=== PATIENT | female | born 2000 | race Hispanic/Latino ===

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

== ENCOUNTER 2024-03-29 07:44 | Inpatient (IN) | payer MEDICAID ==
[2024-03-29 08:08] VITALS: BMI 27.1
[2024-03-29] MEDS ORDERED: hydrALAZINE 20 MG/ML VIAL SLOW IVP PRN ×2 (09:17→09:38)
[2024-03-29] MEDS ORDERED: Lidocaine 1% (PF) 30 ML VIAL SC PRN (09:38)
[2024-03-29] MEDS ORDERED: Ondansetron PF 4 MG/2 ML Vial IVP PRN ×4 (09:38→19:37)
[2024-03-29] MEDS ORDERED: Promethazine HCl 25 MG/ML VIAL IM PRN ×3 (09:38→19:37)
[2024-03-29] MEDS ORDERED: Penicillin G Potassium 5 MILL.UNITS in Sodium Chloride 0.9% 100 ML IVPB SCH (09:45)
[2024-03-29] MEDS ORDERED: Acetaminophen 500 MG TAB PO PRN (09:45)
[2024-03-29] MEDS ORDERED: Zolpidem Tartrate 5 MG TAB PO PRN (09:45)
[2024-03-29] MEDS ORDERED: Carboprost 250 MCG/ML AMP IM PRN (09:45)
[2024-03-29] MEDS ORDERED: Oxytocin 30 units/NS 500 ML 500 ML IV SCH (09:45)
[2024-03-29] MEDS ORDERED: Diphenoxylate HCl/Atropine Tablet PO PRN (09:45)
[2024-03-29] MEDS ORDERED: fentaNYL 50 mcg/mL 1 mL Vial SLOW IVP PRN (09:45)
[2024-03-29] MEDS ORDERED: Tranexamic Acid 1,000 MG/10 ML VIAL IVP PRN (09:45)
[2024-03-29] MEDS ORDERED: Methylergonovine 0.2 MG/ML VIAL IM PRN (09:45)
[2024-03-29] MEDS ORDERED: Misoprostol 200 MCG TAB PR PRN (09:45)
[2024-03-29 11:02] LABS: Hematocrit 43.1 % (34.9-44.5); Mean Corpuscular HGB CONC 34.8 g/dL (32.0-36.0); Mean Corpuscular Hemoglobin 31.8 pg (27.0-33.0); Mean Corpuscular Volume 91.5 fL (81.6-98.3); Mean Platelet Volume 10.4 fL (7.4-10.4); Platelet Count 286 10x3/uL (150-450); RBC Distribution Width 12.9 % (11.5-14.5); Red Blood Cell (RBC) Count 4.71 10x6/uL (3.90-5.03); White Blood Cell (WBC) Count 8.9 10x3/uL (3.5-10.5)
[2024-03-29 11:34] LABS: HBsAg Index 0.26 S/CO (0-0.99); Hep B Surf Ag - L&D Non-Reactive S/CO (NonReactive)
[2024-03-29 11:35] LABS: Syphilis Antibody Nonreactive (Nonreactive); Syphilis Antibody Index 0.05 S/CO (<1.00 Non-Reactive)
[2024-03-29] MEDS: Oxytocin 30 units/NS 500 ML 500 ML IV SCH (13:07)
[2024-03-29] MEDS ORDERED: Penicillin G 2.5 MILL.units 2.5 MILL.UNITS in Premix 1 BAG IVPB SCH (14:00)
[2024-03-29] MEDS: fentaNYL/Ropivacaine Epidural 100 ML ONE (18:01)
[2024-03-29] MEDS ORDERED: diphenhydrAMINE 50 MG/ML VIAL IVP PRN ×2 (18:15→19:37)
[2024-03-29] MEDS ORDERED: Lactated Ringer's 500 ML IV PRN (18:15)
[2024-03-29] MEDS ORDERED: Communication Order-Pharmacy FS SCH ×2 (18:15→19:45)
[2024-03-29] MEDS ORDERED: fentaNYL 2 mcg/Ropivacaine 0.2% Epidural 100 ML CADD EPIDURAL SCH (18:15)
[2024-03-29] MEDS ORDERED: Naloxone HCl 0.4 mg/ml Vial IVP PRN ×4 (18:15→19:37)
[2024-03-29] MEDS ORDERED: Moisturizing Cream (Eucerin) 113 GM JAR TOP PRN ×2 (18:15→19:37)
[2024-03-29] MEDS ORDERED: ePHEDrine Sulfate 50 MG/10 ML VIAL SLOW IVP PRN (18:15)
[2024-03-29] MEDS ORDERED: Meperidine HCl/PF 25 MG (1 mL) VIAL SLOW IVP PRN (19:37)
[2024-03-29] MEDS ORDERED: HYDROmorphone 0.5 MG/0.5 ML SYRINGE SLOW IVP PRN (19:37)
[2024-03-29] MEDS ORDERED: Naloxone HCl 0.4 mg/ml Vial IV PRN (19:37)
[2024-03-29] MEDS: Ketorolac Tromethamine 30 MG (1 mL) VIAL IVP SCH (20:24)
[2024-03-29] MEDS: fentaNYL 50 mcg/mL 1 mL Vial SLOW IVP PRN (20:24)
[2024-03-29] MEDS ORDERED: HYDROcodone/Acetaminophen 5/325 mg Tablet PO PRN (21:52)
[2024-03-30 03:53] LABS: Hematocrit 33.4 % (34.9-44.5); Hemoglobin 11.6 g/dL (12.0-15.5); Mean Corpuscular HGB CONC 34.7 g/dL (32.0-36.0); Mean Corpuscular Hemoglobin 31.8 pg (27.0-33.0); Mean Corpuscular Volume 91.5 fL (81.6-98.3); Mean Platelet Volume 10.2 fL (7.4-10.4); Platelet Count 246 10x3/uL (150-450); RBC Distribution Width 12.8 % (11.5-14.5); Red Blood Cell (RBC) Count 3.65 10x6/uL (3.90-5.03); White Blood Cell (WBC) Count 12.7 10x3/uL (3.5-10.5)
[2024-03-30] MEDS: Ketorolac Tromethamine 30 MG (1 mL) VIAL IVP PRN (05:13)
[2024-03-30] MEDS: Lactated Ringer's 1,000 ML IV SCH (05:14)
[2024-03-30] MEDS: CEFAZOLIN 2 GM VIAL ONE ×2 (07:07)
[2024-03-30] MEDS: Azithromycin 500 MG VIAL ONE ×2 (07:07)
[2024-03-30] MEDS: Tranexamic Acid 1,000 MG/10 ML VIAL ONE (07:08)
[2024-03-30] MEDS: Morphine PF 10 MG/10 ML VIAL ONE (07:08)
[2024-03-30] MEDS: Oxytocin 10 UNITS/ML VIAL ONE (07:08)
[2024-03-30] MEDS: fentaNYL 50 mcg/mL 1 mL Vial ONE ×2 (07:08)
[2024-03-30] MEDS: Ondansetron PF 4 MG/2 ML Vial ONE (07:09)
[2024-03-30] MEDS ORDERED: Bupivacaine/Epinephrine 0.25% 30 ML VIAL ONE (08:00)
[2024-03-30] MEDS ORDERED: Bupivacaine PF 0.5% 30 ML VIAL ONE (08:00)
[2024-03-30] MEDS: Docusate 100 MG CAP PO PRN (20:30)
[2024-03-30] MEDS: HYDROcodone/Acetaminophen 5/325 mg Tablet PO PRN (20:31)
[2024-03-30] MEDS: Ibuprofen 800 MG TAB PO SCH (21:30)
[2024-03-31] MEDS: HYDROcodone/Acetaminophen 5/325 mg Tablet PO PRN (14:18)
[2024-04-01] MEDS: Acetaminophen 325 MG TAB PO PRN (11:28)
[2024-04-01 11:51] VITALS: BP 117/57; TEMP 97.7
== END 2024-04-01 14:45 | disposition home or self-care (01) | DRG 787 ==
LOC: CSHLD/OP 07:44 → CSHLD 10:08 → CSHPP 21:34
PROVIDERS: ADMIT Family Medicine; ATTEND Family Medicine
PROC: 10D00Z1 Extraction of Products of Conception, Low, Open Approach (ICD-10-PCS; principal; 2024-03-29)
DX: O45.93 Premature separation of placenta, unspecified, third trimester (principal); O26.643 Intrahepatic cholestasis of pregnancy, third trimester; Z37.0 Single live birth; Z3A.36 36 weeks gestation of pregnancy; E03.9 Hypothyroidism, unspecified; O99.284 Endocrine, nutritional and metabolic diseases complicating childbirth; Z79.890 Hormone replacement therapy; K76.89 Other specified diseases of liver
CPT/HCPCS: 51702; 76815; 76819; 85027; 86780; 86850; 86900; 86901; 87340; 99285; J0665; J1885; J2274; J2405; J2590; J3010; J7120